=== PATIENT | female | born 1960 | race Caucasian/White ===

== ENCOUNTER 2021-03-31 10:56 | Day surgery (SDC) | payer BC ==
[2021-03-28 10:38] VITALS: BMI 53.8
[~2021-03-31 10:56] MED LIST: ALPRAZolam 0.25 MG TAB PO PRN; ALPRAZolam 0.5 MG TAB PO PRN; ASPIRIN 325 MG TAB PO ONE; ATORVASTATIN 80 MG TAB PO ONE; HEPARIN SODIUM,PORCINE 10,000 UNIT in SODIUM CHLORIDE 0.9% 1,000 ML IRRIGATION PRN; HEPARIN SODIUM,PORCINE 2,500 UNIT in SODIUM CHLORIDE 0.9% 250 ML IRRIGATION PRN; NITROGLYCERIN SL TABS 0.4 MG TAB SUBLINGUAL PRN; SODIUM CHLORIDE 0.9% 1,000 ML in EMPTY BAG 1 BAG IV ONE
[2021-03-31] MEDS ORDERED: LIDOCAINE 1% INJ 10MG/ML (20 ML MDV) ONE (11:51)
[2021-03-31] MEDS ORDERED: fentaNYL (PF) 50 MCG/ML 2 ML AMP ONE (11:51)
[2021-03-31] MEDS ORDERED: VERAPAMIL 2.5 MG/ML 2 ML AMP ONE ×2 (11:51→12:44)
[2021-03-31 11:52] VITALS: RESP 16; TEMP 98.8
[2021-03-31] MEDS ORDERED: HEPARIN SODIUM 1,000 UN/ML (10ML VL) ONE (11:52)
[2021-03-31] MEDS ORDERED: IV FLUID CONTINUATION 950 ML IV ONE (12:08)
[2021-03-31] MEDS ORDERED: MIDAZOLAM 2 MG/2 ML VIAL IV ONE ×2 (12:38→12:47)
[2021-03-31] MEDS: fentaNYL (PF) 50 MCG/ML 2 ML AMP IV ONE ×2 (12:38→12:53)
[2021-03-31] MEDS: MIDAZOLAM 2 MG/2 ML VIAL IV ONE ×2 (12:38→12:53)
[2021-03-31] MEDS: LIDOCAINE 1% INJ 10MG/ML (20 ML MDV) SQ ONE ×2 (12:39→12:59)
[2021-03-31] MEDS ORDERED: VERAPAMIL SYRINGE (5 MG/10 ML) INTRAARTER ONE ×2 (12:40→12:41)
[2021-03-31] MEDS: VERAPAMIL SYRINGE (5 MG/10 ML) INTRAARTER ONE ×2 (12:49→12:55)
[2021-03-31] MEDS ORDERED: IOPAMIDOL-370 125ML BTL INJ ONE (13:13)
[2021-03-31] MEDS ORDERED: RX INFO: IV CONTRAST WAS GIVEN 1 EACH MISC MISCELLANE PRN (13:19)
--- NOTE | 2021-03-31 13:24 | P.CARDCATH ---
Description of Procedure: PROCEDURES PERFORMED: Left heart catheterization, bilateral coronary angiography INDICATION: Abnormal stress test HISTORY: Patient is pleasant 60-year-old female with history of mild coronary artery disease previously, diabetes mellitus, hypertension, hyperlipidemia who has been having atypical chest pain and had workup with prior abnormal stress test showing anterior ischemia. Therefore she was recommended for heart catheterization. CONSENT:I have discussed the risks, benefits and alternative therapies for the above-mentioned procedure and for both sedation/analgesia as well as necessary blood product administration, if indicated, as they pertain to this patient. The patient has indicated understanding and acceptance of the risks and procedures discussed. PROCEDURE: After the risks, benefits and alternatives of the above mentioned procedure explained in detail with the patient, informed consent was obtained. Patient was taken to the catheterization lab and prepped and draped in usual fashion. 1% lidocaine was used to anesthetize the right radial artery. A 6- Maldivian sheath was placed in the right radial artery using modified Seldinger technique. There was difficulty advancing a 5-Maldivian catheter past the mid arm and therefore angiogram was performed which showed high radial artery takeoff with spasm. Despite aggressive sedation, vasodilators and extended amount of time the 5-Maldivian catheter was unable to be advanced. Therefore radial approach was abandoned and a 6-Maldivian sheath was placed in the right femoral artery using modified Seldinger technique, a micropuncture technique and ultrasound guidance. Left coronary angiography was performed with a 5-Maldivian JL 3.5 catheter and right coronary angiography was performed with a 5-Maldivian JR5 catheter in various views. A 5-Maldivian FR5 catheter was inserted into the left ventricle and pressure measurements were obtained. A right femoral angiogram was performed which showed adequate anatomy for closure and a 6-Maldivian Angio-Seal was placed with hemostasis achieved. The right radial sheath was removed and a TR band was placed with hemostasis achieved. The patient tolerated the procedure well. Patient was transported back to the post catheterization holding area in stable condition. Conscious Sedation: Patient was monitored under the direct supervision of vision of myself for conscious sedation using Versed and fentanyl for a total duration of 36 minutes HEMODYNAMICS: Aorta: 110/54 LV: 111/2, LVEDP 6 SELECTIVE CORONARY ARTERIOGRAPHY: LEFT MAIN: The left main is a large caliber vessel which bifurcates into the LAD and circumflex. There is no significant stenosis. There is KAYLYN 2-3 flow noted in all coronary arteries. LEFT ANTERIOR DESCENDING CORONARY ARTERY: LAD is a large caliber vessel which wraps around to the apex. There is no significant stenosis. LEFT CIRCUMFLEX CORONARY ARTERY: Left circumflex is a moderate caliber vessel without significant stenosis. RIGHT CORONARY ARTERY: The right coronary artery is a large caliber vessel which gives off a PDA and PLV branch and is the dominant vessel. There is no signifi cant stenosis. FINAL IMPRESSION: 1. Normal coronary arteries as described above. 2. Low normal left sided filling pressures 3. KAYLYN 2-3 flow noted in all coronary arteries PLAN: 1. Aggressive risk factor modification per most recent ACC/AHA guidelines. 2. Follow-up in the office in 1-2 weeks. 3. May consider antianginal medications for microvascular dysfunction with KAYLYN 2-3 flow however chest pain appears somewhat atypical.
[2021-03-31 16:27] VITALS: BP 103/61; PULSE 86
== END 2021-03-31 17:05 | disposition home or self-care (01) ==
LOC: CATHCVL 10:56
PROVIDERS: ATTEND Internal Medicine
DX: I25.10 Atherosclerotic heart disease of native coronary artery without angina pectoris (principal); I10 Essential (primary) hypertension; E78.5 Hyperlipidemia, unspecified; E11.9 Type 2 diabetes mellitus without complications
CPT/HCPCS: 93458; 87635; C1760; C1894 ×2; C1769 ×3; J2250; J2001; J3010; Q9967